=== PATIENT | female | born 1970 | race African-American/Black ===

== ENCOUNTER 2021-04-05 19:05 | Emergency (ER) | payer OTHER, SELFPAY ==
[~2021-04-05] VITALS: Ht 157.5 cm; Wt 84.0 kg
[2021-04-05 19:12] VITALS: BP 148/91
[2021-04-06] MEDS ORDERED: MAGNESIUM 2 G PREMIX 50 ML IV STA (02:02)
[2021-04-06] MEDS ORDERED: ALBUTEROL (0.083%) 2.5MG/3ML NEB HHN STA (02:02)
[2021-04-06] MEDS ORDERED: METHYLPREDNISOLONE SOD SUCC 125 MG/2 ML VIAL IV STA (02:02)
[2021-04-06] MEDS ORDERED: IPRATROPIUM BROMIDE (0.02%) 0.5MG/2.5ML NEB HHN STA (02:02)
[2021-04-06 03:23] LABS: CHLORIDE 105 mEq/L (98-107)
[2021-04-06 03:31] LABS: BASOPHILS % 0.4 % (0.0-2.0); EOSINOPHILS % 0.2 % (0.0-5.0); HEMATOCRIT. 43.4 % (36.0-48.0); HEMOGLOBIN. 14.4 g/dL (12.0-16.0); MEAN CORPUSCULAR HEMOGLOBIN 29.8 pg (28.0-32.0); MEAN CORPUSCULAR VOLUME 89.7 fL (81.0-99.0); MEAN PLATELET VOLUME 9.9 fl (7.4-10.4); MONOCYTES % 11.3 % (2.0-8.0); NEUTROPHILS % 66.1 % (40.0-76.0); PLATELET 212 x1000/uL (130-400); RED BLOOD CELL COUNT 4.84 mill/uL (4.2-5.4); RED CELL DISTRIBUTION WIDTH 13.6 % (11.6-14.6)
[2021-04-06] MEDS ORDERED: P20 MT (04:49)
[2021-04-06] MEDS ORDERED: BENZ-16 MT (04:49)
== END 2021-04-06 05:54 | disposition home or self-care (01) ==
LOC: ER 19:05
DX: U07.1 COVID-19 (principal); J45.909 Unspecified asthma, uncomplicated; R06.82 Tachypnea, not elsewhere classified; Z98.890 Other specified postprocedural states; Z88.0 Allergy status to penicillin; Z79.899 Other long term (current) drug therapy; Z20.822 Contact with and (suspected) exposure to COVID-19
CPT/HCPCS: 36415; 71045; 80053; 83880; 84484; 85025; 94640; 96365; 96375; 99284; C9803; J2930; J3475; U0003; U0005; Z7610